=== PATIENT | female | born 1940 | race Caucasian/White ===

== ENCOUNTER 2019-12-18 13:08 | Outpatient (CLI) | payer MEDICARE, SELFPAY | END 2019-12-18 13:09 | disposition home or self-care (01) | LOC: ANHAUDIO 13:10 | PROVIDERS: PCP Family Medicine; Visit Provider Otolaryngology | DX: H90.3 Sensorineural hearing loss, bilateral (principal) | CPT/HCPCS: 92553; 92555; 92557; 92567 ==

== ENCOUNTER 2019-12-26 11:32 | Outpatient (RCR) | payer MEDICARE, SELFPAY | END 2019-12-26 23:59 | disposition home or self-care (01) | LOC: ANHAUDIO 11:32 | PROVIDERS: PCP Family Medicine; Visit Provider Family Medicine | DX: Z46.1 Encounter for fitting and adjustment of hearing aid (principal) | CPT/HCPCS: 99199 ==

== ENCOUNTER → 2019-12-30 12:46 | Outpatient (CLI) | payer MEDICARE, SELFPAY ==
--- NOTE | ~2019-12-30 | CT_ITS ---
EXAMINATION: CT chest wo con DATE: 12/30/2019 13:33 INDICATION: Sternal fracture. TECHNIQUE: Computed tomography (CT) of the chest was performed without intravenous contrast. The dose -length product was 157.64 mGy-cm. Automated exposure control and iterative reconstruction technique were employed. COMPARISON: Chest x-ray dated 05/07/2017 FINDINGS: No significant pleural or pericardial effusion. No thoracic lymphadenopathy. There is volum e loss in the right thorax. 3 mm left lower lobe nodule, image 87. There is right middle lobe atelect asis/scarring. There is apical pleural thickening/scarring. No focal airspace consolidation. There is intrahepatic biliary dilatation, partially visualized. Obstructing stone or mass cannot be e xcluded. There are calcified granulomas of the spleen. There is an accessory splenule which is calcif ied. There is a healing sternal fracture. There are degenerative changes of the shoulders. No acute o sseous abnormality. IMPRESSION: 1. Healing sternal fracture. 2: Left lower lobe nodule measuring 3 mm, likely benign. Follow-up low dose CT chest in 12 months re commended. 3: Prominent intrahepatic biliary dilatation partially visualized. Recommend correlation with contra st-enhanced CT abdomen. Reviewed, dictated and finalized at location [facility]. IMPRESSION: 1. Healing sternal fracture. 2: Left lower lobe nodule measuring 3 mm, likely benign. Follow-up low dose CT chest in 12 months recommended. 3: Prominent intrahepatic biliary dilatation partially visualized. Recommend c orrelation with contrast-enhanced CT abdomen.
== END ==
PROVIDERS: PCP Family Medicine; Visit Provider Physician Assistant
DX: S22.20XD Unspecified fracture of sternum, subsequent encounter for fracture with routine healing (principal); X58.XXXD Exposure to other specified factors, subsequent encounter; R91.1 Solitary pulmonary nodule
CPT/HCPCS: 71250

== ENCOUNTER 2020-04-04 12:42 | Emergency (ER) | payer MEDICARE, SELFPAY ==
[2020-04-04] VITALS (7 sets, daily range): BP systolic 83–175; BP diastolic 40–99; PULSE 80–104; RESP 12–14; TEMP 36.9; O2SAT 99
--- NOTE | ~2020-04-04 | CT_ITS ---
EXAMINATION: CT IAC/mastoids BI w con DATE: 04/04/2020 14:36 INDICATION: Chronic right ear pain TECHNIQUE: Computed tomography (CT) of the mastoid air cells and internal auditory canals was perfor med with 75 cc Omnipaque 350 intravenous contrast. The mA was adjusted according to patient size. Ite rative reconstruction technique was employed. Exam dose: 323.40 mGy-cm total exam DLP. COMPARISON: None FINDINGS: There is prominent rightward deviation of the nasal septum. Prominent stacie bullosa and intralamellar cell of the right middle nasal turbinate. There is promine nt relatively symmetric soft tissue swelling of the nasal turbinates bilaterally. The ostiomeatal units are patent. There is partial opacification of the posterior right ethmoid air cell. The paranasal sinuses are oth erwise normally developed and aerated, without mucoperiosteal thickening, fluid level or soft tissue mass density. There is soft tissue thickening within the right middle ear cavity. There is extensive opacification of the right mastoid air cells. There is moderate opacification of left mastoid air cells. There is n o soft tissue thickening in the left middle ear cavity. The cochlea, semicircular canals and internal auditory canals appear symmetric and unremarkable bilat erally. IMPRESSION: Extensive bilateral mastoid effusions, right greater than left Soft tissue thickening within the right middle ear cavity suggesting right otitis media Symmetric normal appearing internal auditory canals Prominent rightward deviation of the nasal septum Prominent stacie bullosa and intralamellar cell of right middle nasal turbinate Focal soft tissue thickening in a posterior right ethmoid air cell Reviewed, dictated and finalized at [facility]. Reviewed, dictated and finalized at location A. COAT SPRAYER IMPRESSION: Extensive bilateral mastoid effusions, right greater than left Soft tissue thickening within the right middle ear cavity suggesting right otit is media Symmetric normal appearing internal auditory canals Prominent rightward deviation of the nasal septum Prominent stacie bullosa and intralamellar cell of right middle nasal turbinate Focal soft tissue thickening in a posterior right ethmoid air cell
[2020-04-04] MEDS: MORPHINE SULFATE (*CRX) 2 MG/ML INJ IV PUSH (13:51)
[2020-04-04] MEDS: SODIUM CHLORIDE 0.9% IV 1,000 ML 999 ML IV CONT ×2 (13:51→17:02)
[2020-04-04 13:56] LABS: Basophils Percent Auto 0.4 % (0.2-1.2); Eosinophils Percent Auto 0.2 % (0-4.4); Hematocrit 40.2 % (37.0-47.0); Hemoglobin 13.3 g/dL (12.0-15.0); Immature Granulocyte Absolute 0.06 K/mm3 (0.00-0.031); Immature Granulocyte Percent A 0.6 % (0-0.5); Lymphocytes Absolute Auto 2.22 K/mm3 (0.9-3.2); Lymphocytes Percent Auto 21.6 % (18.3-44.2); Mean Corpuscular HGB Conc 33.1 g/dl (32-36); Mean Corpuscular Hemoglobin 31.1 pg (26-34); Mean Corpuscular Volume 93.9 fl (80-100); Mean Platelet Volume 9.3 fl (7.4-10.4); Monocytes Absolute Auto 1.1 K/mm3 (0.1-0.6); Monocytes Percent Auto 10.9 % (2.6-8.5); Neutrophils Absolute Auto 6.8 K/mm3 (1.3-6.7); Neutrophils Percent Auto 66.3 % (45.5-73.1); Platelet Count Result 466 k/mm3 (150-375); Red Blood Count 4.28 M/mm3 (4.2-5.4); Red Cell Distribution Width 14.5 % (11.5-14.5); White Blood Count 10.3 K/mm3 (4.5-10.0)
[2020-04-04 14:07] LABS: Anion Gap 7 mmol/L (8-16); Blood Urea Nitrogen 23 mg/dL (7-17); Calcium 9.9 mg/dL (8.4-10.2); Carbon Dioxide 24 mmol/L (22-30); Chloride 108 mmol/L (98-107); Estimated Glomerular Filt Rate > 60; Glucose 141 mg/dL (65-105); Potassium 4.1 mmol/L (3.4-5.0); Sodium 139 mmol/L (137-145)
[2020-04-04 15:10] LABS: Add Urine Microscopic? YES; Appearance Urine Clear (Clear); Bacteria Urine Trace /hpf; Bilirubin Urine Negative (Negative); Blood Urine Negative (Negative); Color Urine Yellow (Yellow); Glucose Urine UA Negative (Negative); Ketones Urine Trace mg/dL (Negative); Leukocyte Esterase Ur Negative LEU/UL (Negative); Mucus Urine Rare /lpf; Nitrate Urine Negative (Negative); Protein Urine 1+ mg/dL (Negative); RBC Urine 0-2 /hpf (0-2); Squamous Epithelial Cell Urine Few /hpf (Few); Urobilinogen Urine Negative mg/dL (<2.0); WBC Urine 0-3 /hpf
[2020-04-04 15:11] LABS: Specific Grav Ur 1.038 (1.001-1.035)
--- NOTE | 2020-04-04 16:26 | ED.EAR ---
HPI - Ear Problem General Chief complaint: Ear Stated complaint: ear infection Time Seen by Provider: 04/04/20 13:09 History of Present Illness HPI Narrative: Patient is a 79-year-old female who presents to the ER with right ear pain and reports of syncope. Apparently patient has a chronic ear infection on the right side. Has been seeing ENT and is getting a second opinion with Dr. Pardo tomorrow. She had a myringotomy tube by Dr. Escobedo on 03/24. She had been on Keflex 03/11/20. Has not had any drainage from the area recently. She reports that she has been having chronic pain from the right ear radiating to her face temporally, maxillary, and into the jaw. No improvement with Gonzales. No difficulty breathing or swallowing. Patient is living with her son, apparently she has had a couple episodes where she goes from sitting to standing will have a brief loss of consciousness. She has not struck her head or suffered any injury. Related Data Home Medications Medication Instructions Recorded Confirmed aspirin 81 mg tablet,delayed 81 mg PO DAILY 03/11/19 02/06/20 release cyanocobalamin (vitamin B-12) 1,000 mcg PO DAILY 03/11/19 02/06/20 1,000 mcg tablet multivit with min-folic 1 tablet PO DAILY 03/11/19 02/06/20 acid-lutein 400 mcg-250 mcg chewable tablet Allergies Allergy/AdvReac Type Severity Reaction Status Date / Time clindamycin AdvReac Intermediate chest pain Verified 04/01/20 10:03 ,heartburn Review of Systems Review of Systems: All systems reviewed & are unremarkable except as noted in HPI and below Constitutional: Constitutional: Denies chills, Denies fever(s) and Denies weakness ENT: Reports nasal congestion and Denies sore throat Comments: Right ear pain Gastrointestinal: Gastrointestinal: Denies abdominal pain, Denies nausea and Denies vomiting Neurologic: Reports syncope, Denies headache(s), Denies focal weakness and Denies numbness PMFSH Past Medical History Medical History Chronic insomnia Chronic pain COPD (chronic obstructive pulmonary disease) Essential (primary) hypertension Gait abnormality GERD (gastroesophageal reflux disease) Intrahepatic bile duct dilation OAB (overactive bladder) Sternal fracture Tibia/fibula fracture ORIF Social History Social History (Updated 04/01/20 @ 10:04 by Freda Leon) Social History: Smoking status: Never smoker Tobacco type: cigarettes Second hand tobacco smoke exposure: No Smoking end date: 03/05/02 Alcohol intake: never Substance use: never Substance use type: does not use Gender identity (if verbalized by the patient): Female Exam Narrative: Exam Narrative: GENERAL: Well-appearing, well-nourished, and in no acute distress. HEAD: Normocephalic, atraumatic. ENT: Right tympanic membrane with myringotomy tube. No drainage. Eardrum otherwise is normal in appearance. External auditory canal free of debris. No tenderness over the mastoids bilaterally without erythema or swelling. Left TM obstructed by cerumen. CHEST: Clear to auscultation. No respiratory distress. HEART: Regular rate and rhythm. Normal peripheral pulses. EXTREMITIES: Normal range of motion. No edema. NEURO: No focal deficits. Alert and oriented x3. PSYCH: Normal mood and affect. Course Course Emergency Course: No real improvement in facial pain with morphine. Will discharge with Percocet. Discussed case with Dr. Pardo please recommend that the patient be placed on Augmentin and keep her follow-up appointment tomorrow morning. Patient daughter verbalized understanding. Patient hydrated fluids. Ambulatory without issue. Discussed with daughter that I still has some concern that patient may be having some issues with trigeminal neuralgia and that she should discuss this with the primary care physician or with a neurologist. Due to the fact that she has an ongoing infection
== END 2020-04-04 17:45 | disposition home or self-care (01) ==
PROVIDERS: Emergency Provider Emergency Medicine; PCP Family Medicine
DX: H66.91 Otitis media, unspecified, right ear (principal); I95.1 Orthostatic hypotension; J44.9 Chronic obstructive pulmonary disease, unspecified; K21.9 Gastro-esophageal reflux disease without esophagitis; I10 Essential (primary) hypertension; N32.81 Overactive bladder
CPT/HCPCS: 36415; 70481; 80048; 81001; 85025; 96361; 96374; 99284; J2270; J7030; Q9967

== ENCOUNTER 2020-04-13 14:12 | Outpatient (CLI) | payer MEDICARE, SELFPAY ==
--- NOTE | ~2020-04-13 | CT_ITS ---
EXAMINATION: CT IAC/mastoids BI wo con DATE: 04/13/2020 14:42 INDICATION: Swelling of mastoids. Severe temporal pain for months. TECHNIQUE: Computed tomography (CT) of the temporal bones was performed without intravenous contrast. Automated exposure control and iterative reconstruction technique were employed. The dose-length pro duct was 214.04 mGy-cm. COMPARISON: CT 04/04/20 FINDINGS: There is thickening of the mucosal space in the right nasopharynx. Diffuse osteopenia is no willem. RIGHT TEMPORAL BONE: The internal auditory canal, cochlea, vestibule, semicircular canals, vestibular aqueduct are normal. There are erosions of the clivus and carotid canal. The ossicles are intact. There is opacification of portions of the tympanic cavity including around the ossicles and in Prussak space. Scutum is norm al. A myringotomy tube is noted. There is a right mastoid effusion. LEFT TEMPORAL BONE: The internal auditory canal, cochlea, vestibule, semicircular canals, vestibular aqueduct, facial ner ve course, ossicles, Prussak space, scutum, and tympanic membrane are normal. There is a small left m astoid effusion. IMPRESSION: 1. Asymmetric thickening of the mucosal space in the right nasopharynx with erosions of bone suspicio us for squamous cell carcinoma. I called this result to Dr. Hernandez. 2. Right otomastoid effusion. 3. Left mastoid effusion. Reviewed, dictated and finalized at location A. SERVICE MANAGER IMPRESSION: 1. Asymmetric thickening of the mucosal space in the right nasopharynx with ero sions of bone suspicious for squamous cell carcinoma. I called this result to Matt Hernandez. 2. Right otomastoid effusion. 3. Left mastoid effusion.
== END 2020-04-13 14:13 | disposition home or self-care (01) ==
LOC: ANHIMG 14:15
PROVIDERS: PCP Family Medicine
DX: H74.91 Unspecified disorder of right middle ear and mastoid (principal)
CPT/HCPCS: 70480

== ENCOUNTER 2020-04-15 11:14 | Outpatient (CLI) | payer MEDICARE, SELFPAY ==
[2020-04-15 11:38] LABS: Basophils Percent Auto 0.2 % (0.2-1.2); Hematocrit 38.1 % (37.0-47.0); Hemoglobin 12.7 g/dL (12.0-15.0); Immature Granulocyte Absolute 0.35 K/mm3 (0.00-0.031); Immature Granulocyte Percent A 1.9 % (0-0.5); Lymphocytes Absolute Auto 1.01 K/mm3 (0.9-3.2); Lymphocytes Percent Auto 5.4 % (18.3-44.2); Mean Corpuscular HGB Conc 33.3 g/dl (32-36); Mean Corpuscular Hemoglobin 31.1 pg (26-34); Mean Corpuscular Volume 93.2 fl (80-100); Mean Platelet Volume 9.6 fl (7.4-10.4); Monocytes Absolute Auto 1.1 K/mm3 (0.1-0.6); Monocytes Percent Auto 5.6 % (2.6-8.5); Neutrophils Absolute Auto 16.3 K/mm3 (1.3-6.7); Neutrophils Percent Auto 86.9 % (45.5-73.1); Platelet Count Result 360 k/mm3 (150-375); Red Blood Count 4.09 M/mm3 (4.2-5.4); Red Cell Distribution Width 14.9 % (11.5-14.5); White Blood Count 18.8 K/mm3 (4.5-10.0)
[2020-04-15 11:43] LABS: Platelet Estimate Adequate (Adequate)
[2020-04-15 11:45] LABS: Atypical Lymphocytes Present; Stomatocytes 1+ (NORMAL)
[2020-04-15 11:46] LABS: Poikilocytosis 1+ (NORMAL)
[2020-04-15 16:36] LABS: Alanine Aminotransferase 143 U/L (4-35); Albumin Level 3.7 g/dL (3.5-5.1); Alkaline Phosphatase 73 U/L (38-126); Anion Gap 10 mmol/L (8-16); Aspartate Amino Transferase 49 U/L (14-36); Bilirubin,Total 0.3 mg/dL (0.2-1.3); Blood Urea Nitrogen 25 mg/dL (7-17); Carbon Dioxide 30 mmol/L (22-30); Chloride 95 mmol/L (98-107); Estimated Glomerular Filt Rate > 60; Glucose 127 mg/dL (65-105); Potassium 4.8 mmol/L (3.4-5.0); Sodium 135 mmol/L (137-145)
[2020-04-21 18:43] LABS: EBV Nuclear Ab Interpretation Past; EBV Virus Capsid Ag IgG Ab >750.00 U/mL (<18.00); EBV Virus Capsid Ag IgM Ab <36.00 U/mL (<36.00)
== END 2020-04-15 11:15 | disposition home or self-care (01) ==
PROVIDERS: PCP Family Medicine; Visit Provider Internal Medicine Hematology & Oncology
DX: C11.9 Malignant neoplasm of nasopharynx, unspecified (principal)
CPT/HCPCS: 36415; 80053; 85025; 86664; 86665

== ENCOUNTER 2020-04-15 12:26 | Outpatient (CLI) | payer MEDICARE, SELFPAY ==
--- NOTE | ~2020-04-15 | MR_ITS ---
EXAMINATION: MR brain IAC wo/w con DATE: 04/15/2020 14:14 INDICATION: Trigeminal neuralgia. Right facial pain. TECHNIQUE: Magnetic resonance imaging (MRI) of the brain, brainstem, and internal auditory canals was performed without and with 12 mL MultiHance intravenous contrast. Sequences included sagittal and ax ial T1-weighted FSE, axial diffusion-weighted FS EPI, axial T2*-weighted GRE, axial T2-weighted FLAIR Propeller, axial T2-weighted Propeller, small tnrou-jy-cpjc coronal FIESTA, small fgere-oq-qiux michelle nal T1-weighted FSE, and small pkdse-qv-gsii axial T1-weighted SPGR. Postcontrast sequences included axial T1-weighted FSE, small wwplu-yf-njch coronal T1-weighted FSE, and small ebnry-wg-nohs axial T1- weighted SPGR. Apparent diffusion coefficient (ADC) maps were created. COMPARISON: CT 04/13/2020 FINDINGS: There is an old lacunar infarct in left lentiform nucleus. There are scattered areas of non specific increased T2-weighted signal intensity in the cerebral white matter and nina. There is no ac pauma ischemic infarct or intracranial hemorrhage. The ventricles are normal in size. There is mild muc osal thickening in the ethmoid sinuses. There are likely changes of ocular lens replacement surgeries . There is a right otomastoid effusion. There is a left mastoid effusion. There is a mass involving t he right nasopharynx and carotid space measuring 3.5 x 2.5 cm on axial images by approximately 4.7 cm craniocaudal. There is involvement of the clivus and bone of the right carotid canal. The mass encas es the right internal carotid artery and causes total occlusion of the right internal jugular vein. T here is a small volume of thrombus in the right internal jugular vein near the sigmoid sinus. The cis ternal portions of the trigeminal nerves are normal. An artery abuts the left trigeminal nerve at the root entry zone, but there is no mass effect. IMPRESSION: 1. 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 2. 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 3. 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 4. Extensive nonspecific cerebral white matter disease and pontine disease, which likely represents c hronic small vessel ischemic disease. Reviewed, dictated and finalized at location A. AL RIDE MANAGER IMPRESSION: 1. Mass in the right nasopharynx and carotid space with skull base invasion, mo st likely squamous cell carcinoma. 2. 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 3. 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 4. Extensive nonspecific cerebral white matter disease and pontine disease, whi ch likely represents chronic small vessel ischemic disease.
== END 2020-04-15 12:27 | disposition home or self-care (01) ==
PROVIDERS: PCP Family Medicine; Visit Provider Otolaryngology
DX: G50.0 Trigeminal neuralgia (principal); R22.0 Localized swelling, mass and lump, head; I82.C11 Acute embolism and thrombosis of right internal jugular vein; Z86.73 Personal history of transient ischemic attack (TIA), and cerebral infarction without residual deficits; R90.82 White matter disease, unspecified
CPT/HCPCS: 36415; 70553; 80053; 85025; 86664; 86665; A9577

== ENCOUNTER 2020-04-27 11:01 | Outpatient (CLI) | payer MEDICARE, SELFPAY ==
--- NOTE | ~2020-04-27 | PE_ITS ---
EXAMINATION: PET skull to mid thigh DATE: 04/27/2020 12:54 INDICATION: Nasopharyngeal carcinoma. TECHNIQUE: Blood glucose level was 179 mg/dL. 9.174 mCi of 18-fluorodeoxyglucose (18-FDG) was adminis tered i.v. Low dose computed tomography (CT) images were acquired from the base of the brain to the p roximal thighs for attenuation correction and anatomic localization. Automated exposure control was e mployed. Dose-length product (DLP) was 427 mGy-cm. Positron emission tomography (PET) images were acq uired in the same distribution. COMPARISON: Chest CT 12/30/2019, brain MRI 04/15/2020, temporal bone CT 04/13/2020 FINDINGS: Head/neck: There is soft tissue thickening in the nasopharynx on the right with maximum SUV of 8.7. T here are erosions of the clivus and right carotid canal. There is a right otomastoid effusion. There is increased activity in bilateral high internal jugular chain lymph nodes measuring up to 1.4 x 1.1 cm on the right and 1.4 x 1.2 cm on the left. Chest: There is mild scarring at the lung apices. Calcified pulmonary nodules and calcified hilar lym ph nodes are consistent with old granulomatous disease. There are a few nodules in the lungs measurin g up to 6 mm in right upper lobe without increased activity. No pleural effusion. The heart size is n ormal. There are coronary artery calcifications. No pericardial effusion. Abdomen/pelvis/proximal thighs: There is moderate intrahepatic biliary duct dilatation. The common du ct is dilated to 2.3 cm. Calcifications in the spleen are consistent with old granulomatous disease. The pancreas and adrenal glands are normal. There is mild atrophy of the kidneys. There are no dilate d loops of bowel. There is gas in the bladder lumen, likely from recent instrumentation. There are no pathologically enlarged lymph nodes. There is no free intraperitoneal fluid. There is a total right hip arthroplasty. There are sclerotic lesions in L1 and L3 vertebral bodies with increased activity. IMPRESSION: 1. Soft tissue thickening in the right nasopharynx with increased activity and bone erosion, consiste nt with primary malignancy. 2. Bilateral high internal jugular chain lymphadenopathy with increased activity, consistent with met astatic disease. 3. Sclerotic lesions in L1 and L3 vertebral bodies with increased activity, consistent with metastati c disease. 4. Intrahepatic and extrahepatic biliary duct dilatation. 5. Pulmonary nodules measuring up to 6 mm without increased activity, which may be benign or metastat ic disease. Reviewed, dictated and finalized at location A. NEL INSTALLER IMPRESSION: 1. Soft tissue thickening in the right nasopharynx with increased activity and bone erosion, consistent with primary malignancy. 2. Bilateral high internal jugular chain lymphadenopathy with increased activit y, consistent with metastatic disease. 3. Sclerotic lesions in L1 and L3 vertebral bodies with increased activity, con sistent with metastatic disease. 4. Intrahepatic and extrahepatic biliary duct dilatation. 5. Pulmonary nodules measuring up to 6 mm without increased activity, which may be benign or metastatic disease.
[2020-04-27 11:24] LABS: Glucose Point of Care 179 (65-105)
== END 2020-04-27 11:02 | disposition home or self-care (01) ==
PROVIDERS: PCP Family Medicine; Visit Provider Internal Medicine Hematology & Oncology
DX: C11.3 Malignant neoplasm of anterior wall of nasopharynx (principal)
CPT/HCPCS: 78815; 82948; A9552

== ENCOUNTER 2020-05-04 18:02 | Emergency (ER) | payer MEDICARE, SELFPAY ==
[2020-05-04] VITALS (19 sets, daily range): BP systolic 127–164; BP diastolic 59–88; PULSE 62–99; RESP 16–29; TEMP 36.4–36.6; O2SAT 97–100
--- NOTE | ~2020-05-04 | XR_ITS ---
EXAMINATION: XR chest 1V portable INDICATION: Weakness TECHNIQUE: Portable AP chest at 1848 hours COMPARISON: 05/07/2017; PET/CT, 04/27/2020 FINDINGS: Minimal airspace opacity is present in the right lower lobe. There is no pleural effusion o r pneumothorax. The heart size is normal. Calcified lung nodules and mediastinal and left hilar lymph nodes are consistent with old granulomatous disease. IMPRESSION: 1. Right basilar airspace opacity, consistent with atelectasis versus pneumonia. Reviewed, dictated and finalized at location A. STMAS TREE FARM CREW BOSS IMPRESSION: 1. Right basilar airspace opacity, consistent with atelectasis versus pneumonia .
--- NOTE | ~2020-05-04 | CT_ITS ---
EXAMINATION: CT brain wo con INDICATION: Weakness and confusion COMPARISON: None TECHNIQUE: Standard unenhanced head CT. The dose-length product (DLP) was 605.33 mGy-cm. The mA was a djusted according to patient size. Iterative reconstruction technique was employed. FINDINGS: There is no acute intraparenchymal hemorrhage. No evidence of mass lesion. No evidence of a cute infarction. There is an old lacunar infarct of the left basal ganglia. There is moderate periven tricular and subcortical hypodensity probably related to small vessel ischemic disease. There is mode rate prominence of the sulci and ventricles related to cerebral atrophy. Intracranial calcified cereb ral atherosclerosis is noted. There are no extra-axial collections. There is no mass effect or midlin e shift. Changes in the globes are likely from ocular lens surgery. There is a right mastoid effusio n. IMPRESSION: 1. No acute intracranial abnormality. 2. Age related findings. Reviewed, dictated and finalized at location A. ST SUPERVISOR
--- NOTE | 2020-05-04 18:30 | ECG_ITS ---
Measurements Intervals [place] Rate: 92 P: 75 DE: 139 QRS: 64 QRSD: 80 T: 89 QT: 340 QTc: 422 Interpretive Statements SINUS RHYTHM ATRIAL PREMATURE COMPLEXES POSSIBLE LEFT ATRIAL ENLARGEMENT POSSIBLE LEFT VENTRICULAR HYPERTROPHY BORDERLINE ST-T WAVE ABNORMALITY- LAT/HIGH LAT LEADS BASELINE ARTIFACT- I, II, III, AVR, AVL, AVF, V1-V6 BORDERLINE ECG Electronically Signed On 05-04-2020 20:34:58 JAVA TECHNICAL ARCHITECT by Gus James D.O.
--- NOTE | 2020-05-04 18:36 | ED.GENADULT ---
HPI - General Adult General Chief complaint: Weakness Stated complaint: weakness, confusion, assessment for hospice. Time Seen by Provider: 05/04/20 18:22 Source: patient and family History of Present Illness HPI narrative: Patient is a 79 y/o female brought in by daughter for generalized weakness and confusion for last 3 days. There is no alleviating or exacerbating factor. She denies any pain. She was recently diagnosed with nasopharyngeal cancer. Related Data Home Medications Medication Instructions Recorded Confirmed aspirin 81 mg tablet,delayed 81 mg PO DAILY 03/11/19 02/06/20 release cyanocobalamin (vitamin B-12) 1,000 mcg PO DAILY 03/11/19 02/06/20 1,000 mcg tablet multivit with min-folic 1 tablet PO DAILY 03/11/19 02/06/20 acid-lutein 400 mcg-250 mcg chewable tablet Allergies Allergy/AdvReac Type Severity Reaction Status Date / Time clindamycin AdvReac Intermediate chest pain Verified 04/01/20 10:03 ,heartburn Review of Systems Constitutional: Constitutional: Denies chills, Denies fever(s), Denies headache(s) and Reports weakness Eyes: Eyes: Denies blurry vision ENT: Denies headache(s) and Denies neck pain Cardiovascular: Cardiovascular: Denies chest pain and Denies dyspnea Respiratory: Respiratory: Denies cough and Denies dyspnea Gastrointestinal: Gastrointestinal: Denies abdominal pain, Denies diarrhea, Denies nausea and Denies vomiting Genitourinary: Genitourinary: Denies hematuria and Denies dysuria Musculoskeletal: Musculoskeletal: Denies back pain and Denies neck pain Neurologic: Denies headache(s) and Reports weakness [facility] Past Medical History Medical History Chronic insomnia Chronic pain COPD (chronic obstructive pulmonary disease) Essential (primary) hypertension Gait abnormality GERD (gastroesophageal reflux disease) Intrahepatic bile duct dilation OAB (overactive bladder) Sternal fracture Tibia/fibula fracture ORIF Social History Social History Social History: Smoking status: Never smoker Tobacco type: cigarettes Second hand tobacco smoke exposure: No Smoking end date: 03/05/02 Alcohol intake: never Substance use: never Substance use type: does not use Gender identity (if verbalized by the patient): Female Exam Const: General: no acute distress Orientation/consciousness: oriented to person, oriented to place and confusion HENMT: Head: normocephalic Ears: external ears normal General nose exam: Normal external nose present Eyes: General: appearance normal, both eyes and all related structures Conjunctivae: conjunctivae normal Neck: Neck: normal visual inspection and full ROM Chest: Chest palpation & inspection: normal inspection of the chest and no tenderness Resp: Effort & Inspection: normal respiratory effort Auscultation: clear to auscultation bilaterally Cardio: Rate: regular rate Rhythm: regular rhythm GI: GI Palp: No abdominal tenderness and Yes Soft to palpation Skin: General skin exam: normal color and turgor normal Neuro: General: oriented to person, oriented to place and confusion Cognition (Neuro): normal cognition Extrem: General: normal to inspection, full ROM and no pedal edema Psych: Appearance: grossly normal Mental Status: mental status grossly normal Affect: normal affect Course Reevaluation(s) Reevaluation #1: Nurse reports that patient is hallucinating and seeing a purple mosquito in the room. Date: 05/04/20 Time: 21:45 Reevaluation #2: Discussed with patient and daughter about test results. Offered possible admission for observation. However, they declined and want to be discharged. Date: 05/04/20 Time: 23:25 Vital Signs Vital signs: Vital Signs Temperature 36.6 C 05/04/20 18:07 Pulse Rate 62 05/04/20 18:07 Respiratory Rate 20 05/04/20 18:07 Blood Pressure 143/75 H
[2020-05-04 19:05] LABS: Hematocrit 36.6 % (37.0-47.0); Hemoglobin 12.4 g/dL (12.0-15.0); Mean Corpuscular HGB Conc 33.9 g/dl (32-36); Mean Corpuscular Hemoglobin 32.5 pg (26-34); Mean Corpuscular Volume 95.8 fl (80-100); Mean Platelet Volume 11.5 fl (7.4-10.4); Platelet Count Result 162 k/mm3 (150-375); Red Blood Count 3.82 M/mm3 (4.2-5.4); Red Cell Distribution Width 16.4 % (11.5-14.5); White Blood Count 14.5 K/mm3 (4.5-10.0)
[2020-05-04 19:09] LABS: Add Urine Microscopic? YES; Appearance Urine Cloudy (Clear); Bacteria Urine 4+ /hpf; Bilirubin Urine Negative (Negative); Blood Urine Negative (Negative); Color Urine Yellow (Yellow); Glucose Urine UA 3+ mg/dL (Negative); Ketones Urine Negative (Negative); Leukocyte Esterase Ur Negative LEU/UL (Negative); Mucus Urine Heavy /lpf; Nitrate Urine Negative (Negative); Protein Urine 1+ mg/dL (Negative); Specific Grav Ur 1.024 (1.001-1.035); Squamous Epithelial Cell Urine Occasional /hpf (Few); WBC Urine 0-3 /hpf
[2020-05-04 19:20] LABS: Band Neutrophils Percent 4 % (0-6); Lymphocytes Absolute Manual 0.29 K/mm3 (1.1-4.5); Monocytes Absolute Manual 0.58 K/mm3 (0.1-0.90); Monocytes Percent Manual 4 % (3-9); Neutrophils Absolute Manual 13.63 K/mm3 (1.7-7.2); Neutrophils Percent Manual 90 % (46-73); Platelet Estimate Adequate (Adequate); Total Cells Counted 100
[2020-05-04 19:21] LABS: Anisocytosis 2+ (NORMAL)
[2020-05-04 20:40] LABS: Alanine Aminotransferase 50 U/L (4-35); Alkaline Phosphatase 72 U/L (38-126); Anion Gap 4 mmol/L (8-16); Aspartate Amino Transferase 24 U/L (14-36); Bilirubin,Total 0.8 mg/dL (0.2-1.3); Blood Urea Nitrogen 43 mg/dL (7-17); Calcium 8.5 mg/dL (8.4-10.2); Carbon Dioxide 29 mmol/L (22-30); Chloride 102 mmol/L (98-107); Estimated CRCL calculation 51 ml/min; Estimated Glomerular Filt Rate > 60; Glucose 308 mg/dL (65-105); Potassium 4.6 mmol/L (3.4-5.0); Sodium 135 mmol/L (137-145)
[2020-05-04] MEDS: INSULIN HUMAN REGULAR (*BKC) 100 UNITS/ML 8 UNITS SUB-Q (22:25)
[2020-05-04] MEDS: SODIUM CHLORIDE 0.9% IV 1,000 ML 999 ML IV CONT (22:26)
[2020-05-04 23:43] LABS: Glucose Point of Care 278 (65-105)
== END 2020-05-04 23:50 | disposition home or self-care (01) ==
PROVIDERS: Emergency Provider Emergency Medicine; PCP Family Medicine
DX: R73.9 Hyperglycemia, unspecified (principal); R41.82 Altered mental status, unspecified; N39.0 Urinary tract infection, site not specified; Z79.82 Long term (current) use of aspirin; J44.9 Chronic obstructive pulmonary disease, unspecified; I10 Essential (primary) hypertension; K21.9 Gastro-esophageal reflux disease without esophagitis; N32.81 Overactive bladder; Z87.891 Personal history of nicotine dependence
CPT/HCPCS: 36415; 70450; 71045; 80053; 81001; 82948; 85025; 93005; 96360; 99284; J1815; J7030